=== PATIENT | male | born 1980 | race Caucasian/White ===

== ENCOUNTER → 2024-07-30 08:20 | Outpatient (BNVA) | payer OTHER, SELFPAY | PROVIDERS: PCP Family Medicine; Referring Provider Family Medicine; Visit Provider Student in an Organized Health Care Education/Training Program | DX: Z12.11 Encounter for screening for malignant neoplasm of colon (principal); R12 Heartburn | CPT/HCPCS: 99204 ==

== ENCOUNTER 2024-08-11 07:32 | Day surgery (SDC) | payer OTHER, SELFPAY ==
[2024-08-11 07:48] VITALS: BP 145/100; PULSE 72; RESP 18; TEMP 36.1; O2SAT 96; BMI 33.5
--- NOTE | 2024-08-11 07:54 | ANES.PREANE2 ---
Pre-Anesthetic Assessment Height/Weight: Height 1.8 m Weight 108.862 kg Temp Pulse Resp BP Pulse Ox O2 Del Method 97.0 F L 72 18 145/100 96 Room Air 08/11/24 07:48 08/11/24 07:48 08/11/24 07:48 08/11/24 07:48 08/11/24 07:48 08/11/24 07:48 Preop Diagnosis: screening & heartburn Operation Date: 08/11/24 08:30 Proposed Procedures p EGD [id number] G0121 Z12.11 R12(Not Applicable) - Yamil Esparza MD s Colonoscopy(Not Applicable) - Yamil Esparza MD Familial anesthetic complications: none Was Beta Caridad taken within 24 hours: N/A Was Clonidine taken within 24 hours: N/A Last intake: Intake Last Liquid Date 08/10/24 Last Liquid Time 22:00 Last Solid Date 08/09/24 Last Solid Time 20:00 Social Alcohol (weekly) and Tobacco (nicotine pouches) Exam alert, oriented x 3, clear to auscultation bilaterally and regular rate & rhythm Airway Submandibular: within normal limits Cervical ROM: within normal limits Mallampati: Class II Dentition: full Pulmonary None reported CV/HEM Hypertension None reported Hepatic None reported GI Gastroesophageal Reflux Disease Metabolic None reported Musc/skel None reported Neuropsych None reported Anesthetic Plan ASA status: 2 Anesthesia: MAC Medications/Allergies Home Medications ?Medication ?Instructions ?Recorded ?Confirmed ?Last Taken ?Type lisinopril 10 mg tablet 10 mg PO DAILY 07/30/24 08/05/24 08/10/24 History Allergies Allergy/AdvReac Type Severity Reaction Status Date / Time No Known Allergies Allergy Verified 08/11/24 07:51 [facility] Anesthesia Social History Smoking and tobacco/nicotine status: never used tobacco/nicotine Data Anesthesia Cardiac Studies: No Data to Display
[2024-08-11] MEDS: sodium chloride 0.9% 1,000 ML 15 ML IV (07:55)
--- NOTE | 2024-08-11 08:02 | W.PM.OPSUD ---
Surgery/Procedure H&P Update DATE OF PROCEDURE: August 11, 2024 DATE H&P PERFORMED: 07/30/24 H&P UPDATE INFORMATION: I have reviewed H&P completed within last 30 days, I have examined patient prior to procedure and No changes to prior documentation PREOP DIAGNOSIS: screening & heartburn PLANNED PROCEDURE: Operation Date: 08/11/24 08:30 Proposed Procedures p EGD [id number] G0121 Z12.11 R12(Not Applicable) - Yamil Esparza MD s Colonoscopy(Not Applicable) - Yamil Esparza MD
[2024-08-11 08:29] VITALS: BP 124/105; PULSE 98; RESP 14; TEMP 36.3; O2SAT 94
[2024-08-11 08:45] VITALS: BP 130/99; PULSE 83; RESP 16; O2SAT 92
[2024-08-11 08:58] VITALS: BP 130/83; PULSE 74; RESP 16; O2SAT 94
--- NOTE | 2024-08-11 09:30 | ANE.PACU2 ---
Inpatient post-anesthesia follow up: Airway intact: Yes Vital signs: Temperature 97.4 F Pulse Rate 74 Respiratory Rate 16 Blood Pressure 130/83 Pulse Oximetry 94 Oxygen Delivery Me thod Room Air Oxygen Flow Rate 4 Fraction of Inspir ed Oxygen Hydration adequate: Yes Nausea and vomiting: No Pain level: 1 Mental status: Baseline
== END 2024-08-11 09:30 | disposition home or self-care (01) ==
PROVIDERS: PCP Family Medicine; Visit Provider Student in an Organized Health Care Education/Training Program
PROC: 0DJ08ZZ Inspection of Upper Intestinal Tract, Via Natural or Artificial Opening Endoscopic (ICD-10-PCS; principal; 2024-08-11 08:30)
PROC: 0DJD8ZZ Inspection of Lower Intestinal Tract, Via Natural or Artificial Opening Endoscopic (ICD-10-PCS; CPT 45378; 2024-08-11 08:30)
DX: Z12.11 Encounter for screening for malignant neoplasm of colon (principal); K57.30 Diverticulosis of large intestine without perforation or abscess without bleeding; I10 Essential (primary) hypertension; K21.9 Gastro-esophageal reflux disease without esophagitis; Z79.899 Other long term (current) drug therapy
CPT/HCPCS: 43239; 45378; 88305; J2704; J3010; J7030

== ENCOUNTER → 2024-08-24 11:35 | Outpatient (BNVA) | payer OTHER, SELFPAY | PROVIDERS: PCP Family Medicine; Visit Provider Student in an Organized Health Care Education/Training Program | DX: Z09 Encounter for follow-up examination after completed treatment for conditions other than malignant neoplasm (principal) | CPT/HCPCS: 99213 ==